=== PATIENT | female | born 1960 | race Caucasian/White ===

== ENCOUNTER 2018-01-07 06:43 | Day surgery (SDC) | payer OTHER ==
[~2018-01-07 06:43] MED LIST: NALOXONE (0.4 MG/ML) INJ IV; SOD CHLORIDE 0.9% 1,000 ML IV
[2018-01-07] MEDS ORDERED: LIDOCAINE 2% (SDV) 5 ML INJ (07:00)
[2018-01-07] MEDS ORDERED: PROPOFOL 200 MG INJ (07:00)
[2018-01-07] MEDS: MOXIFLOXACIN 0.5% 3 ML OPH OPER (08:16)
[2018-01-07] MEDS: PHENYLephrine 2.5% 15 ML OPH OPER (08:16)
[2018-01-07] MEDS: TROPICAMIDE 1% 3 ML OPH OPER (08:16)
[2018-01-07] MEDS: PREDNISOLONE ACET 1% 5 ML OPH OPER (08:17)
[2018-01-07] MEDS: PROPARACAINE 0.5% 15 ML OPH OPER (08:20)
[2018-01-07] MEDS ORDERED: BUPIVACAINE 0.5% (SDV) 30 ML INJ (09:47)
[2018-01-07] MEDS: LIDOCAINE 2%/EPI (MDV) 20ML INJ INJ (09:50)
[2018-01-07] MEDS: SODIUM HYALURONATE 14 MG/ML SYG IO (09:50)
[2018-01-07] MEDS ORDERED: EPINEPHrine 1 MG IN 3 ML (1:3000) FOR *INTRA-OP* USE INJ (10:00)
== END 2018-01-07 11:55 | disposition home or self-care (01) ==
LOC: SDS 06:43
DX: H25.12 Age-related nuclear cataract, left eye (principal)
CPT/HCPCS: 66984